=== PATIENT | female | born 1945 | race Caucasian/White ===

== ENCOUNTER 2016-12-25 10:16 | Observation (INO) | payer MEDICARE ==
[2016-12-25 10:42] LABS: Hematocrit 51.4 % (36.0-47.0); Mean Platelet Volume 7.8 fL (7.4-10.4); Red Blood Cell (RBC) Count 5.26 mill/uL (4.20-5.40); White Blood Cell (WBC) Count 7.9 thou/uL (4.8-10.8)
[2016-12-25] MEDS ORDERED: Diltiazem HCl 125 MG, Admixture Fee 1 EACH in Sodium Chloride 0.9% 100 ML SLOW IVP SCH (10:45)
[2016-12-25 10:49] LABS: PTT 27.4 SEC (22.9-36.1); Prothrombin Time 12.5 SEC (12.0-14.7)
--- NOTE | 2016-12-25 10:59 | RAD ---
EXAM: ONE VIEW CHEST: HISTORY: Dyspnea. FINDINGS: Portable upright chest demonstrates atherosclerosis of the aorta. Normal cardiac silhouette. The p ulmonary vessels and hilum are normal. No masses or consolidation. No pneumothorax or osseous abno rmalities. IMPRESSION: No acute cardiopulmonary process. POS: [facility]
[2016-12-25 11:03] LABS: Neutrophil 41 % (42-75); Reactive Lymphocytes 3 % (0-10)
[2016-12-25 11:05] LABS: ALT (SGPT) 17 U/L (8-55); AST (SGOT) 23 U/L (5-34); Alkaline Phosphatase 74 U/L (40-150); Anion Gap 17 mmol/L (10-20); BUN (Urea Nitrogen) 20 mg/dL (9.8-20.1); Bilirubin, Total 0.5 mg/dL (0.2-1.2); CK (CPK) 103 U/L (29-168); Calc. Creatinine Clearance 0 mL/min (70-130); Calcium 9.9 mg/dL (7.8-10.44); Carbon Dioxide 25 mmol/L (23-31); Chloride 101 mmol/L (98-107); Estimated GFR-MDRD 55; Globulin 3.1 g/dL (2.4-3.5); Lipase 84 U/L (8-78); Protein, Total 7.8 g/dL (6.0-8.3)
[2016-12-25 11:07] LABS: Troponin I Less than 0.010 ng/mL (< 0.028)
[2016-12-25] MEDS ORDERED: Ondansetron ODT 4 MG TAB PO PRN (13:42)
[2016-12-25] MEDS ORDERED: Acetaminophen 325 MG TAB PO PRN (13:42)
[2016-12-25 13:53] LABS: Troponin I Less than 0.010 ng/mL (< 0.028)
[2016-12-25 14:01] VITALS: BMI 19.5
[2016-12-25 17:07] LABS: Troponin I Less than 0.010 ng/mL (< 0.028)
[2016-12-25] MEDS: Famotidine 20 MG TAB PO SCH (20:27)
[2016-12-25] MEDS: Enoxaparin Sodium 60 MG/0.6 ML SYRINGE SC SCH (20:28)
--- NOTE | 2016-12-25 20:50 | HP-2 ---
CODE STATUS: DNR/DNI. PRIMARY CARE PHYSICIAN: Nehemiah rolle. ATTENDING: Dr. Puente PGY1: Dr. Huitron. CHIEF COMPLAINT: Shortness of breath. HISTORY OF PRESENT ILLNESS: A 71-year-old female presents with 2-day history of shortness of breath . She states in the morning, she felt lightheaded, weak and she had some nausea and diarrhea. She recently changed her diet and thought she was feeling this way because she was hungry. She also not es that she had pneumonia vaccine 2 weeks ago. She denies chest pain, but does admit to palpitation s. She did not fall, but would have if she did not break herself. This has never happened like thi s before. She states that she knows that it felt like it was beating out of her chest that she coul d not catch her wind. In the ER, she was given diltiazem. PAST MEDICAL HISTORY: None. PAST SURGICAL HISTORY: She had a total abdominal hysterectomy and a left meniscus repair. ALLERGIES: None. MEDICATIONS: Whole host of multivitamins and supplements. She does not have a list with her. FAMILY HISTORY: Significant for mitral valve prolapse in her mother. SOCIAL HISTORY: Denies any tobacco use or drug use. She did recently stop drinking wine, but it wa s of no excessive volume. REVIEW OF SYSTEMS: General: She does admit to chills this morning during this episode. She denies any weight changes, night sweats, or fatigue. Eyes: She denies any vision changes. ENT: Denies nasal congestion, rhinorrhea, or sore throat. Respiratory: Denies any cough, congestion. She does admit to shortness of breath. Cardiovascular: She denies chest pain. She does admit to palpitati ons. Denies edema or orthopnea. Gastrointestinal: She admits to nausea and diarrhea. She denies vomiting, abdominal pain, or GI bleeding. Genitourinary: Denies any incontinence or dysuria. Skin : Denies any rashes or lesions. Musculoskeletal: Denies pain, tenderness, stiffness, swelling or arthritis in the joints. Neurologic: Admits to some weakness. Denies any numbness or seizures. P sychiatric: Denies any anxiety or depression. PHYSICAL EXAMINATION: VITAL SIGNS: Blood pressure was 138/99, pulse was 90, respirations 17, temperature max 98.7, pulse ox 100% on room air. Current weight was 58 kilograms. GENERAL: She was alert and oriented x4. She is appropriately interactive. HEENT: PERRLA. Conjunctivae within normal limits. ENT: Tympanic membranes were pearly najera without bulging or erythema. Nasal mucosa and oropharynx were within normal limits. NECK: Supple, without lymphadenopathy, without thyromegaly. CARDIAC: Irregular rhythm with a regular rate. No murmurs, no gallop. She did have a radial and p edal pulses were equal bilaterally. RESPIRATORY: Normal effort, no retractions. LUNGS: Clear to auscultations bilaterally. SKIN: Warm and dry. No cyanosis or lesions. ABDOMEN: Soft, nontender. Bowel sounds are present x4. No masses or distention. EXTREMITIES: No clubbing or cyanosis. She did have a trace edema to her lower left extremity. MUSCULOSKELETAL: She had tone, muscle strength and range of motion were within normal limits. NEUROLOGIC: No focal neurologic deficits. Sensation within normal limits. Cranial nerves II-XII g rossly intact. GCS is 15. PSYCHIATRIC: Appropriate. LABORATORY DATA: She had a white blood cell count of 7.9, platelet count 233, hemoglobin 16.3, gely tocrit 51.4. Sodium of 139, potassium of 4.0, chloride of 101, \\\\"bicarb of 25, BUN of 20, creatini ne of 1.00, glucose 103, calcium 9.9, total protein 7.8, albumin of 4.7, total bilirubin 0.5, AST wa s 23, ALT 17, alkaline phosphate 74. PT was 12.5, INR 0.9, PTT 27.4. CK 103, CK-MB 1.3. Troponins were less than 0.01. Lipase was 84. BNP 293.4. EKG showed atrial fibrillation with RVR and ST de pression. Chest x-ray showed nothing acute. ASSESSMENT AND PLAN: A 71-year-old female with no past medical history, presents with: 1. Atrial fibrillation with rapid ventricular response. We are going to admit to telemetry. We ar e going to get a transthoracic echocardiogram. Order a TSH. Trend the troponins. Put on therapeut ic Lovenox and 30 mg of q.i.d. diltiazem and consult Cardiology. 2. DNR/DNI. DISPOSITION AND LENGTH OF HOSPITAL STAY: Will be tele labs and 1 midnight. Symptomatic medication will be provided. History and physical exam as well as management discussed with Dr. Puente.
--- NOTE | 2016-12-25 21:26 | HP ---
CHIEF COMPLAINT: Shortness of breath. HISTORY OF PRESENT ILLNESS: This is a 71-year-old female with no significant past medical history, who presents with a 2-day history of shortness of breath and palpitations. She denies any chest vanessa n or diaphoresis. She does have intermittent nausea and had some loose bowel movements as well as s ome presyncope and lightheadedness. Currently, she denies any palpitations, shortness of breath, or trouble breathing. In the ER, she was found to be in atrial fibrillation with RVR and subsequently converted after being given diltiazem to normal sinus rhythm. REVIEW OF SYSTEMS: General: No fever or chills. Eyes: No decreased visual acuity or eye pain. E NT: No rhinorrhea, sore throat. Cardiovascular: As per HPI. Respiratory: No cough or hemoptysis . Gastrointestinal: See HPI. Genitourinary: Denies dysuria or urgency. Musculoskeletal: No jose a lgias or arthralgias. Neurologic: No numbness or weakness. Psychiatric: No depression or anxiety . PAST MEDICAL HISTORY: Negative. PAST SURGICAL HISTORY: Positive for NBA and meniscal repair. ALLERGIES: CLINDAMYCIN AND VANCOMYCIN. MEDICATIONS: She is taking no prescription medications and is on a multivitamin and krill oil. FAMILY HISTORY: Noncontributory. SOCIAL HISTORY: Denies tobacco, ethanol, or drug abuse. PHYSICAL EXAMINATION: VITAL SIGNS: Temperature 98.7; pulse 120, but in the room most recently 88; BP 167/83, O2 sat 97% o n room air, respirations 19. GENERAL: In no acute distress, resting comfortably. HEENT: No icterus or injection on eye exam. ENT, no goiter or palpable thyromegaly or lymphadenopa thy. CARDIOVASCULAR: Regular rate and rhythm without murmurs, gallops, rubs, or clicks. RESPIRATORY: Clear to auscultation bilaterally without wheezes, rales, or rhonchi. No increased wo rk of breathing. GASTROINTESTINAL: Bowel sounds positive. Nontender to palpation. No organomegaly. Scaphoid abdom en. : Deferred. MUSCULOSKELETAL: No deformity or fracture. NEUROLOGIC: Sensation intact to light touch in all four extremities. Cranial nerves II-XII is inta ct and symmetric. Motor 5/5 throughout. PSYCHIATRIC: Alert and oriented x3. Mood and affect appropriate for her current medical condition. LABORATORY DATA: Labs are reviewed in detail. Only significant for BNP that is 203.4, lipase is 84 , but other than that BMP and LFTs normal. CBC with a white count of 7.9, hemoglobin 16.3, platelet s 233. INR 0.9. Chest x-ray is negative for any acute process. ASSESSMENT AND PLAN: This is a 71-year-old female with previously no medical history with a new ons et of paroxysmal atrial fibrillation. We will go ahead and admit her, begin anticoagulation, possib ly switch to an oral anticoagulant tomorrow, consult Cardiology to discuss rhythm and rate control a nd go ahead and place her on diltiazem until they see her, therapeutic Lovenox.
[2016-12-26 04:51] LABS: #Basophils 0.1 thou/uL (0.0-0.2); #Eosinphils 0.2 thou/uL (0.0-0.7); #Lymphocytes 2.6 thou/uL (1.20-3.40); #Monocytes 0.5 thou/uL (0.11-0.59); #Neutrophils 2.2 thou/uL (1.40-6.50); %Basophils 1.6 % (0.0-1.0); %Eosinophils 4.3 % (0.0-10.0); %Lymphocytes 46.3 % (21.0-51.0); %Monocytes 8.3 % (0.0-10.0); Hematocrit 44.6 % (36.0-47.0); Mean Platelet Volume 7.7 fL (7.4-10.4); Red Blood Cell (RBC) Count 4.56 mill/uL (4.20-5.40); White Blood Cell (WBC) Count 5.6 thou/uL (4.8-10.8)
[2016-12-26 05:11] LABS: Anion Gap 12 mmol/L (10-20); BUN (Urea Nitrogen) 16 mg/dL (9.8-20.1); Calc. Creatinine Clearance 66 mL/min (70-130); Calcium 9.2 mg/dL (7.8-10.44); Carbon Dioxide 26 mmol/L (23-31); Chloride 105 mmol/L (98-107); Estimated GFR-MDRD 77
--- NOTE | 2016-12-26 05:52 | CON ---
DATE OF CONSULTATION: 12/25/2016 DATE OF ADMISSION: 12/25/2016 INDICATION FOR CONSULTATION: A 71-year-old female with new onset atrial fibrillation. HISTORY OF PRESENT ILLNESS: This very pleasant and very healthy otherwise appearing female, 71 year s old, has never had any cardiac problems that she is aware of. In the last 2 days, she has been sh ort of breath, increasing weakness, almost had an episode of almost passing out. Today, she felt te rrible, reported to the emergency room and was found to have atrial fibrillation with rapid ventricu lar response. Her heart rate in the emergency room was in the 120 range, but most likely it was gerry ewhat faster earlier, but otherwise has been doing relatively well. She was given diltiazem in the emergency room and then converted back to normal sinus rhythm. Since that time she has been maintai jessie on p.o. diltiazem and seems to be doing quite well. She has not had any significant risk factor s for developing atrial fibrillation. She has no history of coronary artery disease, no history of hypothyroidism. No history of significant alcohol abuse and no major trauma or stress recently. Susan mi has been a very healthy person and stays very active. At this time, she denies any chest pain. H er shortness of breath and symptoms have improved since she is maintaining sinus rhythm. PAST MEDICAL HISTORY: Significant for left knee surgery. She has also had what appears to be hydro nephrosis in the past and underwent a percutaneous drainage. She had a total abdominal hysterectomy . She did have an episode of syncope which she says is related to steroids. SOCIAL HISTORY: She is . She has no children. There is no alcohol or tobacco abuse. She does drink in the past, but stopped it due to having problems sleeping at night with drinking wine. FAMILY HISTORY: Unremarkable for any early heart disease. MEDICATIONS AT HOME: Included over the counter medications vitamins CoQ10 and Krill oil. She was o n no prescription medications. ALLERGIES: She is allergic to MYCINS. REVIEW OF SYSTEMS: She has environmental allergies. She wears glasses. She has had some GI upset in the past due to antibiotics but this is resolved. She had the episode of syncope as noted. Othe rwise, 12 point review of systems unremarkable except what was noted in the history of present illne ss. PHYSICAL EXAMINATION: GENERAL: Reveals a well-developed, well-nourished female. VITAL SIGNS: Blood pressure 130/69, heart rate is 88 and regular at this time. She is afebrile, re spiratory rate 16. HEENT: Reveals the head to be normocephalic and atraumatic. Carotid pulses are present. There wer e no bruits. There is no JVD. The thyroid is not enlarged. Oral mucosa was pink and moist. CHEST: Clear to auscultation without rales, rhonchi or wheezing. CARDIOVASCULAR: Exam reveals a regular rate and rhythm with normal S1, S2. There is no S3, S4. Th ere were no significant murmurs, heaves, thrills, bruits or rubs noted. ABDOMEN: Soft and nontender with positive bowel sounds. No organomegaly or masses were noted. Fem oral pulses are present. EXTREMITIES: Showed no clubbing, cyanosis or edema. Pedal pulses are present. NEUROLOGIC: The patient appears to be intact. There is no evidence of weakness. She has normal mo tor strength and function. SKIN: Warm and dry. Her chest x-ray shows no acute changes. Her EKG in the emergency room showed atrial fibrillation, b ut now she is converted back to sinus rhythm, actually I think she is converted since being in the e mergency room and has remained in sinus rhythm all day. She had an echocardiogram which shows a nor mal ejection fraction about 60-65% with mild tricuspid valve regurgitation and she also has mild to moderate tricuspid valve regurgitation, no evidence of chamber dilatation. Her laboratory data also shows no acute abnormalities. There is no evidence of anemia. Her TSH was 4.89. Troponins are negative. BNP was 293. IMPRESSION: 1. New onset atrial fibrillation which converted easily in the emergency room with diltiazem. At t his time, I would continue the p.o. diltiazem for short term. I will see her in the office and we m ay be able to stop this medication. We will give her just a long-acting medication or as \\\\" pill-i [id number]\\\\" as she may not have had another episode of atrial fibrillation. This may be what wa s considered to be \\\\"lone\\\\" atrial fibrillation and she may be a candidate for pqwu-qh-kqj-pocket. If this is the case, we will need to evaluate further and see whether or not she has any further e pisodes. Also she has a very low CHRISTINE score. Actually her CHADS2 score is 0 and it was suggested she not be placed on any oral anticoagulations on discharge. I would agree with doses of Lovenox to day. Aspirin at home 81-325 mg should be adequate in this lady. At some point in time, she may nee d to undergo stress testing. This could be done as an outpatient. We will be more than happy to co linette to follow her. I will see her in the office for further evaluation and followup. At this ti me, she remains stable from a cardiac standpoint and no further workup was indicated at this time.
--- NOTE | 2016-12-26 07:04 | PDOC.FM ---
- Subjective Subjective: Patient had a good night, but didn't get much sleep. She denies any further a- fib with RVR episodes associated with the pounding chest, sob, and lightheadedness. She denies fever, chills, n/v/d. She is ready to go home today. - Objective Vital Signs & Weight: Vital Signs (12 hours) Temp Pulse Resp BP BP Pulse Ox 12/26/16 04:20 98.0 F 68 16 116/62 95 12/25/16 23:27 98.5 F 74 18 125/63 96 12/25/16 19:30 98.2 F 74 20 12/25/16 19:25 98.2 F 74 20 121/57 L 98 Weight Weight 60.01 kg I&O: 12/25/16 12/26/16 12/27/16 06:59 06:59 06:59 Intake Total 560 Output Total 300 Balance 260 Result Diagrams: 12/26/16 04:21 12/26/16 04:21 <Michael Huitron - Last Filed: 12/26/16 08:40> - Objective Vital Signs & Weight: Vital Signs (12 hours) Temp Pulse Resp BP BP Pulse Ox 12/26/16 11:10 75 16 123/60 12/26/16 08:10 97.5 F L 60 16 12/26/16 07:26 97.5 F L 60 16 119/60 96 12/26/16 04:20 98.0 F 68 16 116/62 95 Weight Weight 60.01 kg I&O: 12/25/16 12/26/16 12/27/16 06:59 06:59 06:59 Intake Total 560 Output Total 300 Balance 260 Result Diagrams: 12/26/16 04:21 12/26/16 04:21 <Jarad Lowe - Last Filed: 12/26/16 14:43> Phys Exam - Physical Examination HEENT: PERRLA, moist MMs Neck: no nodes, supple Respiratory: no wheezing, clear to auscultation bilateral Cardiovascular: RRR, no significant murmur Gastrointestinal: soft, non-tender, no distention, positive bowel sounds Musculoskeletal: no edema, pulses present Neurological: non-focal, normal sensation, moves all 4 limbs Psychiatric: normal affect, A&O x 3 Skin: no rash <Michael Huitron - Last Filed: 12/26/16 08:40> Dx/Plan (1) Atrial fibrillation with RVR Code(s): I48.91 - UNSPECIFIED ATRIAL FIBRILLATION Status: Acute Plan: -Converted with diltiazem -Appreciate recs from Dr. Yao -On therapeutic lovenox, as per Dr. Yao will discharge on oral aspirin -On oral diltiazem, as per Dr. Yao will continue this as outpatient. -She will follow up with Dr. Yao as outpatient. - Plan Plan: Discharge today for further outpatient follow up. <Michael Huitron - Last Filed: 12/26/16 08:40> Attending Addendum - Attending Addendum I personally evaluated the patient and discussed the management with Dr. Huitron. I agree with the History, Examination, Assessment and Plan documented above with any addition or exceptions noted below. Patient doing well this morning. She has conversion to NSR yesterday after diltiazem. Echo normal and cardiology has recommended short term Diltiazem and ASA and will follow up in clinic in 2-3 weeks. No active issues and patient doing very well. Stable for discharge today. <Jarad Lowe - Last Filed: 12/26/16 14:43>
[2016-12-26 07:53] VITALS: TEMP 97.5
[2016-12-26] MEDS: Enoxaparin Sodium 60 MG/0.6 ML SYRINGE SC SCH (08:05)
[2016-12-26] MEDS: Famotidine 20 MG TAB PO SCH (08:05)
--- NOTE | 2016-12-26 09:07 | PDOC.CTH ---
<Cherri Snow - Last Filed: 12/26/16 09:05> Cardiology Progress Note - Subjective the pt was seen and examined. No overnight events. No cardiac complaints. The pt has been walking around her room without any cardiac complaints. She felt palpitation/fluttering during the examination; however, Tele monitor showed SR at that time. - Objective Vital Signs Temp Pulse Resp BP BP Pulse Ox 12/26/16 08:10 97.5 F L 60 16 12/26/16 07:26 97.5 F L 60 16 119/60 96 12/26/16 04:20 98.0 F 68 16 116/62 95 12/25/16 23:27 98.5 F 74 18 125/63 96 Weight 132 lb 4.8 oz 12/25/16 12/26/16 12/27/16 06:59 06:59 06:59 Intake Total 560 Output Total 300 Balance 260 - Physical Examination General/Neuro: alert & oriented x3 Neck: no JVD present Lungs: CTA Heart: RRR Abdomen: soft, other: Extremities: other: - Telemetry Telemetry Rhythm: No edemas - Labs Result Diagrams: 12/26/16 04:21 12/26/16 04:21 Troponin/CKMB CK-MB (CK-2) 1.3 ng/mL (0-6.6) 12/25/16 10:33 Troponin I Less than 0.010 ng/mL (< 0.028) 12/25/16 16:32 - Assessment/Plan 1. New onset Atrial fibrillation with RVR - Remain SR since she converted back to SR from Afib in ER with Diltiazem; Stop Lovenox and start ASA 325mg MAR Reviewed *From Cardiac standpoint, the pt is stable enough to be d/rubi home with Diltiazem 120 mg Daily and ASA 325mg daily; She will follow up with Dr. Yao' office within 2-3wks; possible her Diltiazem will be d/rubi and change to long acting antiarrhythmics medication as "Pill in pocket" Review of Systems - Review of Systems Constitutional: reports: no symptoms reported EENTM: reports: no symptoms reported Respiratory: reports: no symptoms reported Cardiac (ROS): reports: no symptoms reported ABD/GI: reports: no symptoms reported : reports: no symptoms reported Musculoskeletal: reports: no symptoms reported Skin: reports: no symptoms reported Neurological: reports: no symptoms reported <Ksenia Yao - Last Filed: 12/26/16 09:23> Cardiology Progress Note - Objective Vital Signs Temp Pulse Resp BP BP Pulse Ox 12/26/16 08:10 97.5 F L 60 16 12/26/16 07:26 97.5 F L 60 16 119/60 96 12/26/16 04:20 98.0 F 68 16 116/62 95 12/25/16 23:27 98.5 F 74 18 125/63 96 Weight 132 lb 4.8 oz 12/25/16 12/26/16 12/27/16 06:59 06:59 06:59 Intake Total 560 Output Total 300 Balance 260 - Labs Result Diagrams: 12/26/16 04:21 12/26/16 04:21 Troponin/CKMB CK-MB (CK-2) 1.3 ng/mL (0-6.6) 12/25/16 10:33 Troponin I Less than 0.010 ng/mL (< 0.028) 12/25/16 16:32 - Assessment/Plan Pt. was seen and evaluated by me. I agree with the A/P by the COMMUNICATIONS OFFICER. I will see the pt. back in 3-4 weeks in the office.
[2016-12-26 11:34] VITALS: BP 123/60
--- NOTE | 2016-12-26 17:38 | DIS-2 ---
DATE OF ADMISSION: 12/25/2016 DATE OF DISCHARGE: 12/26/2016 RESIDENT: Dr. Huitron ADMITTING ATTENDING: Dr. Puente. DISCHARGE ATTENDING: Dr. Lowe. CONSULTATION: Dr. Yao in Cardiology. PROCEDURE: Transthoracic echocardiogram. PRIMARY DIAGNOSIS: Atrial fibrillation with rapid ventricular response. DISCHARGE MEDICATIONS: 1. Aspirin 325 mg. 2. Cardizem 60 mg b.i.d. DISCONTINUED MEDICATIONS: None. HISTORY OF PRESENT ILLNESS AND HOSPITAL COURSE: This is a 71-year-old female who presents with a 2- day history of shortness of breath. She states in the morning, she felt lightheaded, weak and had s ome nausea and diarrhea. She recently changed her diet, but she was feeling this way because she wa s hungry. She also notes that she has had a pneumonia vaccine 2 weeks ago. She denies chest pain, but does admit to palpitations. She did not fall, but would have if she did not brace herself. Thi s has never happened like this before. She states she knows that it felt like it was beaten out of her chest and that she could not catch her wind. In the ER, she was given diltiazem and converted f rom atrial fibrillation easily. Dr. Yao in Cardiology saw this patient, recommended that we had do ne appropriate therapy with the therapeutic Lovenox as well as keeping with the oral diltiazem. She did recommend as an outpatient to be discharged with an oral aspirin 325 mg as well as a longer-act ing diltiazem and will be able to follow up with Dr. Yao in 1 week. The patient was no longer symp tomatic, did not have any other episodes of atrial fibrillation or with atrial fibrillation with RVR . She did not have any chest pains, had no other complications during this hospitalization. Opal oconnor was then discharged in appropriate condition. DISPOSITION: Stable. DISCHARGE INSTRUCTIONS: 1. Location: She will be discharged home into her own care. 2. Diet: Diet will be as tolerated without any restrictions. 3. Activity: Activity will be as tolerated without any restrictions. 4. Followup: Follow up will be with Dr. Yao with Cardiology within 1 week to reevaluate her from an AFIB standpoint to be evaluated for a uyyl-xv-yvg-pocket therapy for her AFIB going forward.
[2016-12-27] MEDS ORDERED: Aspirin 325 MG TAB PO SCH (09:00)
== END 2016-12-26 11:48 | disposition home or self-care (01) ==
LOC: ERS 10:16 → MERGE 11:55 → 2SW 11:55
PROVIDERS: ADMIT Family Medicine; ATTEND Family Medicine
DX: I48.91 Unspecified atrial fibrillation (principal); Z66 Do not resuscitate; Z79.82 Long term (current) use of aspirin; Z79.899 Other long term (current) drug therapy; Z88.1 Allergy status to other antibiotic agents; Z82.49 Family history of ischemic heart disease and other diseases of the circulatory system
CPT/HCPCS: 71010; 80048; 82550; 82553; 83690; 83880; 84484 ×2; 85025; 85610; 85730; 93005; 93306; 96372 ×2; 96374; 99285; G0378; 36415; 80053; 84443; J1650; J7050

== ENCOUNTER 2016-12-28 08:05 | Emergency (ER) | payer MEDICARE ==
[2016-12-28 08:44] LABS: Hematocrit 45.2 % (36.0-47.0); Mean Platelet Volume 7.5 fL (7.4-10.4); Red Blood Cell (RBC) Count 4.61 mill/uL (4.20-5.40)
[2016-12-28 08:59] LABS: ALT (SGPT) 13 U/L (8-55); AST (SGOT) 19 U/L (5-34); Alkaline Phosphatase 56 U/L (40-150); Anion Gap 13 mmol/L (10-20); BUN (Urea Nitrogen) 14 mg/dL (9.8-20.1); Bilirubin, Total 0.7 mg/dL (0.2-1.2); Calc. Creatinine Clearance 0 mL/min (70-130); Calcium 9.7 mg/dL (7.8-10.44); Carbon Dioxide 25 mmol/L (23-31); Chloride 105 mmol/L (98-107); Estimated GFR-MDRD 61; Globulin 2.7 g/dL (2.4-3.5); Protein, Total 7.1 g/dL (6.0-8.3)
[2016-12-28 09:00] LABS: Troponin I Less than 0.010 ng/mL (< 0.028)
[2016-12-28 09:06] LABS: Band 1 % (5-11); Metamyelocyte 1 % (0-0); Neutrophil 30 % (42-75); Reactive Lymphocytes 3 % (0-10)
--- NOTE | 2016-12-28 10:18 | RAD ---
RADIOGRAPH CHEST 1 VIEW: HISTORY: 71-year-old female in atrial fibrillation. FINDINGS: There is hyperinflation of the lungs, consistent with COPD. There is no evidence of air space densi ty, pneumothorax, or pulmonary edema. The lateral costophrenic angles are sharp. IMPRESSION: 1. No acute pulmonary findings. 2. Emphysema. garland [] POS: [facility]
[2016-12-28] MEDS ORDERED: Digoxin 0.5 MG/2 ML AMP ONE (10:27)
--- NOTE | 2017-01-03 12:34 | EKG ---
Test Reason : IRREGULAR RATE Blood Pressure : / mmHG Vent. Rate : 080 BPM Atrial Rate : 080 BPM P-R Int : 128 ms QRS Dur : 110 ms QT Int : 374 ms P-R-T Axes : 086 077 052 degrees QTc Int : 431 ms Normal sinus rhythm Possible Left atrial enlargement Incomplete right bundle branch block Nonspecific ST abnormality Abnormal ECG Confirmed by KELLY OLIVER, LEANNE ([id number]), editor in chief SARAH ALTAMIRANO ([id number]) on 01/03/2017 12:34:11 PM Referred By: Confirmed By:LEANNE MENDOZA MD
== END 2016-12-28 11:10 | disposition home or self-care (01) ==
LOC: ERS 08:05
DX: I48.0 Paroxysmal atrial fibrillation (principal); Z79.82 Long term (current) use of aspirin; Z79.899 Other long term (current) drug therapy
CPT/HCPCS: 36415; 71010; 80053; 82553; 84484; 85025; 93005; 96374; J1160

== ENCOUNTER 2018-03-29 22:24 | Emergency (ER) | payer MEDICARE ==
[2018-03-29] MEDS ORDERED: Adacel (T-DAP) 0.5 ML SYRINGE ONE (23:51)
[2018-03-29] MEDS ORDERED: Bacitracin Zinc 1 Packet ONE (23:52)
== END 2018-03-30 00:21 | disposition home or self-care (01) ==
LOC: ERS 22:24
DX: S61.211A Laceration without foreign body of left index finger without damage to nail, initial encounter (principal); I48.91 Unspecified atrial fibrillation; W26.8XXA Contact with other sharp object(s), not elsewhere classified, initial encounter
CPT/HCPCS: 90471; 90715